=== PATIENT | female | born 1960 | race Two or more races ===

== ENCOUNTER 2024-05-03 13:31 | Inpatient (IN) | payer MEDICARE, OTHER ==
[~2024-05-03] VITALS: Ht 154.9 cm; Wt 57.6 kg
[2024-05-03 13:40] VITALS: O2SAT 100
[2024-05-03 14:59] LABS: BASOPHILS # (AUTO) 0.1 K/uL (0.0-0.2); BASOPHILS % (AUTO) 0.9 % (0.0-2.0); EOSINOPHILS # (AUTO) 0.1 K/uL (0.0-0.7); EOSINOPHILS % (AUTO) 0.9 % (0.0-6.0); HEMATOCRIT 39 % (33-45); LYMPHOCYTES # (AUTO) 1.8 K/uL (0.8-4.8); LYMPHOCYTES % (AUTO) 28.8 % (20.0-44.0); MEAN CORPUSCULAR HEMOGLOBIN 32 PG (26.0-33.0); MEAN CORPUSCULAR HGB CONC 33 g/dl (31.0-36.0); MEAN CORPUSCULAR VOLUME 96 fL (82-100); MONOCYTES # (AUTO) 0.5 K/uL (0.1-1.30); MONOCYTES % (AUTO) 8.1 % (2.0-12.0); NEUTROPHILS # (AUTO) 3.8 K/uL (1.8-8.9); NEUTROPHILS % (AUTO) 61.3 % (43.0-81.0); PLATELET COUNT (AUTO) 247 K/uL (150-450); RED BLOOD CELL COUNT(AUTO) 4.09 MIL/uL (4.0-5.2); RED CELL DISTRIBUTION WIDTH 13.4 % (11.5-15.0); WHITE BLOOD COUNT (AUTO) 6.3 K/uL (4.3-11.0)
[2024-05-03 15:12] LABS: CALCIUM, SERUM 9.3 mg/dL (8.5-10.1); CARBON DIOXIDE 26 mmol/L (21-32); CHLORIDE 105 mmol/L (98-107); CREATININE 0.6 mg/dL (0.6-1.3); GLUCOSE 93 mg/dL (74-106); POTASSIUM 3.7 mmol/L (3.5-5.1); SODIUM SERUM 140 mmol/L (136-145); UREA NITROGEN, BLOOD 16 mg/dL (7-18)
[2024-05-03 15:20] LABS: ACETAMINOPHEN 0 ug/ml (10-30); ALANINE AMINOTRANSFERASE 19 U/L (12-78); ALBUMIN 3.4 g/dL (3.4-5.0); ALCOHOL, BLOOD < 3 mg/dL (0-10); ALKALINE PHOSPHATASE 79 U/L (46-116); ASPARTATE AMINOTRANSFERASE 15 U/L (15-37); BILIRUBIN,DIRECT 0.1 mg/dL (0.0-0.2); BILIRUBIN,TOTAL 0.4 mg/dL (0.2-1.0); SALICYLATE 1.8 mg/dL (2.8-20.0)
[2024-05-03] MEDS ORDERED: NA P133E RC (15:35)
[2024-05-03] MEDS ORDERED: MEMA5TAB PO (15:35)
[2024-05-03] MEDS ORDERED: ACET-868 PO (15:35)
[2024-05-03] MEDS ORDERED: MAGN400O6 PO (15:35)
[2024-05-03] MEDS ORDERED: ONDA-97 PO (15:35)
[2024-05-03] MEDS ORDERED: MULT-754 PO (15:35)
[2024-05-03] MEDS ORDERED: POLY17PO4 PO (15:35)
[2024-05-03] MEDS ORDERED: MIRT-90 PO (15:35)
[2024-05-03] MEDS ORDERED: ATOR40TA PO (15:35)
[2024-05-03] MEDS ORDERED: DIPH25TA25 PO (15:35)
[2024-05-03] MEDS ORDERED: LEVO125T PO (15:35)
[2024-05-03] MEDS ORDERED: BENZ1LOZ58 PO (15:35)
[2024-05-03] MEDS ORDERED: DONE5TAB34 PO (15:35)
[2024-05-03] MEDS ORDERED: DOCU100C36 PO (15:35)
[2024-05-03] MEDS ORDERED: IBUP-2715 PO (15:35)
[2024-05-03] MEDS ORDERED: METO25TA6 PO (15:35)
[2024-05-03 16:04] LABS: APPEARANCE,URINE Clear (CLEAR); BILIRUBIN,URINE Negative (NEGATIVE); BLOOD, URINE Trace-intact Ery/uL (NEGATIVE); COLOR,URINE YELLOW (YELLOW); KETONES,URINE 15 mg/dL (NEGATIVE); LEUKOCYTE ESTERASE ,URINE Negative (NEGATIVE); NITRITE, URINE Negative (NEGATIVE); PROTEIN,URINE Negative (NEGATIVE); UGLUCOSE Negative (NEGATIVE); UROBILINOGEN,URINE 0.2 EU/dL (0.2)
[2024-05-03 16:08] LABS: AMPHETAMINE, URINE NEGATIVE (NEGATIVE); BARBITURATE, URINE NEGATIVE (NEGATIVE); BENZODIAZEPINE, URINE NEGATIVE (NEGATIVE); CANNABINOID, URINE NEGATIVE (NEGATIVE); COCCAINE, URINE NEGATIVE (NEGATIVE); OPIATE, URINE NEGATIVE (NEGATIVE); PHENCYCLIDINE SCREEN,URINE NEGATIVE (NEGATIVE)
[2024-05-03 16:38] LABS: T4 (THYROXINE) 5.3 ug/dL (4.7-13.3)
[2024-05-03] MEDS ORDERED: MAGNESIUM HYDROXIDE 30 ML UDC PO PRN ×2 (22:30→23:00)
[2024-05-03] MEDS ORDERED: MAG HYDROX/AL HYDROX/SIMETH 30 ML UDC PO PRN (22:30)
[2024-05-03] MEDS ORDERED: ACETAMINOPHEN 325 MG TABLET PO PRN ×2 (22:30→23:00)
[2024-05-03] MEDS ORDERED: LORAZEPAM 0.5 MG TABLET PO PRN (22:30)
[2024-05-03] MEDS: OLANZAPINE 10 MG VIAL IM ONE (22:53)
[2024-05-03] MEDS ORDERED: NA PHOS,M-B/NA PHOS,DI-BA 1 EA ENEMA RC PRN (23:00)
[2024-05-03] MEDS ORDERED: POLYETHYLENE GLYCOL 3350 17 GM POWD.PACK PO PRN (23:00)
[2024-05-03] MEDS ORDERED: diphenhydrAMINE HCL 25 MG CAPSULE PO PRN (23:00)
[2024-05-03] MEDS ORDERED: IBUPROFEN 200 MG TABLET PO PRN (23:00)
[2024-05-03] MEDS: BLOOD SUGAR DIAGNOSTIC 1 EACH STRIP IN ONE (23:08)
[2024-05-04] MEDS ORDERED: ONDANSETRON 4 MG TAB.RAPDIS PO PRN (01:00)
[2024-05-04] MEDS ORDERED: MENTHOL/CETYLPYRD (CEPACOL) 1 LOZ LOZENGE PO PRN (01:00)
[2024-05-04 08:00] VITALS: BP 125/111; TEMP 97.8; O2SAT 100
[2024-05-04] MEDS: LEVOTHYROXINE SODIUM 125 MCG TABLET PO SCH (08:09)
[2024-05-04 08:18] LABS: ALBUMIN 3.4 g/dL (3.4-5.0); BILIRUBIN,TOTAL 0.6 mg/dL (0.2-1.0); CALCIUM, SERUM 9.6 mg/dL (8.5-10.1); CREATININE 0.9 mg/dL (0.6-1.3); POTASSIUM 4.3 mmol/L (3.5-5.1); TOTAL PROTEIN, SERUM 6.9 g/dL (6.4-8.2)
[2024-05-04 08:27] LABS: CHOLESTEROL 187 mg/dL (<200); HDL CHOLESTEROL 68 mg/dL (40-60); LDL 99 mg/dL (0-99); TRIGLYCERIDES 66 mg/dL (30-150)
[2024-05-04] MEDS: METOPROLOL TARTRATE 25 MG TABLET PO SCH (09:00)
[2024-05-04] MEDS: MULTIVITAMINS,THERAGRAN 1 UDTAB TABLET PO SCH (09:00)
[2024-05-04] MEDS: DOCUSATE SODIUM 100 MG CAPSULE PO PRN (09:27)
[2024-05-04 16:01] VITALS: BP 174/102; TEMP 97.9; O2SAT 98
[2024-05-04] MEDS: MEMANTINE HCL 5 MG TABLET PO SCH (16:22)
[2024-05-04] MEDS: AMLODIPINE BESYLATE 5 MG TABLET PO SCH (16:22)
[2024-05-04 20:55] VITALS: BP 151/89; TEMP 97.9; O2SAT 99
[2024-05-04] MEDS: DONEPEZIL 5 MG TABLET PO SCH (21:18)
[2024-05-04] MEDS: QUETIAPINE FUMARATE 25 MG TABLET PO SCH (21:18)
[2024-05-04] MEDS: ATORVASTATIN 40 MG TABLET PO SCH (21:18)
[2024-05-05 08:00] VITALS: BP 137/86; TEMP 97.9; O2SAT 98
[2024-05-05 08:07] LABS: FOLIC ACID 16.2 ng/mL (>3.0)
[2024-05-05] MEDS: OLANZAPINE 10 MG VIAL IM ONE (08:20)
[2024-05-05] MEDS: ESCITALOPRAM OXALATE (10 MG) 10 MG TABLET PO SCH (08:36)
[2024-05-05 11:10] LABS: *ANA ANTI-CENTROMERE B AB <0.2 AI (0.0-0.9); *ANA ANTI-DNA(DS) AB, QN <1 IU/mL (0-9); *ANA ANTI-JO-1 <0.2 AI (0.0-0.9); *ANA ANTICHROMATIN ANTIBODY <0.2 AI (0.0-0.9); *ANA RNP ANTIBODIES <0.2 AI (0.0-0.9); *ANA SJOGREN'S ANTI-SS-A <0.2 AI (0.0-0.9); *ANA SJOGREN'S ANTI-SS-B <0.2 AI (0.0-0.9); *ANAANTI-SCLERODERMA-70 AB <0.2 AI (0.0-0.9); *ANASMITH AB <0.2 AI (0.0-0.9)
[2024-05-05 16:00] VITALS: BP 122/84; TEMP 97.9; O2SAT 98
[2024-05-05 20:43] VITALS: BP 128/75; TEMP 98.4; O2SAT 97
[2024-05-06 08:00] VITALS: BP 124/84; TEMP 97.5; O2SAT 99
[2024-05-06 16:00] VITALS: BP 143/72; TEMP 97.9; O2SAT 97
[2024-05-06 20:00] VITALS: BP 134/86; TEMP 98; O2SAT 96
[2024-05-06] MEDS: QUETIAPINE FUMARATE 25 MG TABLET PO SCH (21:30)
[2024-05-07 08:00] VITALS: BP 116/90; TEMP 98.1; O2SAT 98
[2024-05-07 16:00] VITALS: BP 116/96; TEMP 97.9; O2SAT 98
[2024-05-07 20:00] VITALS: BP 133/74; TEMP 98.3; O2SAT 96
[2024-05-08 08:00] VITALS: BP 152/90; TEMP 97.7; O2SAT 94
[2024-05-08 16:00] VITALS: BP 149/79; TEMP 99.5; O2SAT 95
[2024-05-08 20:00] VITALS: BP 140/90; TEMP 97.6; O2SAT 98
[2024-05-09 08:00] VITALS: BP 139/83; TEMP 97.5; O2SAT 97
[2024-05-09] MEDS: OLANZAPINE 10 MG VIAL IM ONE (15:40)
[2024-05-09 16:00] VITALS: BP 124/93; TEMP 98.1; O2SAT 97
[2024-05-09 20:35] VITALS: BP 124/79; TEMP 97.9; O2SAT 97
[2024-05-10 08:00] VITALS: BP 137/78; TEMP 98.6; O2SAT 98
[2024-05-10] MEDS: ENSURE ENLIVE 237 ML LIQUID (VANILLA) PO SCH (08:56)
[2024-05-10 16:00] VITALS: BP 141/79; TEMP 98.1; O2SAT 99
[2024-05-10 21:00] VITALS: BP 131/86; TEMP 98.2; O2SAT 98
[2024-05-11] MEDS: ZOLPIDEM TARTRATE 5 MG TABLET PO PRN (01:05)
[2024-05-11 08:00] VITALS: BP 142/83; TEMP 98.1; O2SAT 98
== END 2024-05-11 13:30 | DRG 885 ==
LOC: ER 13:35 → GPS 21:18
PROVIDERS: ADMIT Psychiatry & Neurology Psychiatry
DX: F33.3 Major depressive disorder, recurrent, severe with psychotic symptoms (principal); F03.93 Unspecified dementia, unspecified severity, with mood disturbance; F03.918 Unspecified dementia, unspecified severity, with other behavioral disturbance; R45.851 Suicidal ideations; F29 Unspecified psychosis not due to a substance or known physiological condition; E03.9 Hypothyroidism, unspecified; E78.5 Hyperlipidemia, unspecified; Z79.899 Other long term (current) drug therapy; I10 Essential (primary) hypertension; Z88.0 Allergy status to penicillin; Z88.2 Allergy status to sulfonamides; Z91.018 Allergy to other foods; Z79.890 Hormone replacement therapy; K59.00 Constipation, unspecified
CPT/HCPCS: 36415; 70450-TC; 80048-TC; 80053-TC; 80061-TC; 80076-TC; 82607-TC; 83921; 84436-TC; 84439-TC; 84443-TC; 84480; 84481; 85025-TC; 85652-TC; 86140-TC; 86225; 86235; 87081-TC; G0480; J3490